=== PATIENT | female | born 1965 ===

== ENCOUNTER 2020-11-25 21:56 | Emergency (ER) | payer BC, MEDICAID ==
[~2020-11-25] VITALS: Ht 157.5 cm; Wt 85.0 kg
[2020-11-25 22:09] VITALS: BP 123/77
--- NOTE | 2020-11-25 22:13 | NUR ---
REFUND SPECIALIST: PT HAD EKG DONE IN [facility].
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
[2020-11-25] MEDS ORDERED: AZITHROMYCIN 250 MG TABLET ONE (22:39)
[2020-11-25] MEDS ORDERED: predniSONE 50MG TABLET PO/NG ONE ×2 (23:00)
[2020-11-25] MEDS ORDERED: AZITHROMYCIN 500 MG TABLET PO/NG ONE (23:00)
[2020-11-25] MEDS ORDERED: PLEASE ENTER ALLERGIES MC SCH (23:00)
[2020-11-25] MEDS ORDERED: PLEASE ENTER WEIGHT MC SCH (23:00)
== END 2020-11-25 23:04 | disposition home or self-care (01) ==
LOC: ED 22:30
DX: J20.9 Acute bronchitis, unspecified (principal); R07.89 Other chest pain; R05 Cough; R09.81 Nasal congestion; F41.9 Anxiety disorder, unspecified; M79.10 Myalgia, unspecified site; J45.909 Unspecified asthma, uncomplicated
CPT/HCPCS: 71045; 93005; 99284; J7512